=== PATIENT | male | born 1940 | race Two or more races ===

== ENCOUNTER 2017-02-20 19:07 | Emergency (ER) | payer SELFPAY ==
[~2017-02-20] VITALS: Ht 165.1 cm; Wt 69.9 kg
[2017-02-20] MEDS ORDERED: NKM (19:17)
[2017-02-20 19:26] VITALS: BP 129/67
--- NOTE | 2017-02-20 20:16 | Emergency Room Report ---
History of Present Illness General Chief Complaint: Skin Rash/Abscess Source: Patient Present Illness HPI The patient states that he was stung by a bee 2 days ago.He states that he did see a physician yesterday and was put on Keflex and an antiallergy medication. He states that he noted some swelling in his left hand. He states that the sting was in his left upper arm. He admits that he has not been elevating the arm. He denies fever or chills. He denies pain. He states actually the arm appears to be improving. He has no other complaints. Allergies: Coded Allergies: No Known Allergies (Unverified , 02/20/17) Patient History Past Medical History: none, see triage record Social History: Denies: alcohol use, drug use, smoking Reviewed Nursing Documentation: PMH: Agreed, PSxH: Agreed Nursing Documentation-PMH Past Medical History: No Stated History Review of Systems All Other Systems: negative except mentioned in HPI Physical Exam Vital Signs Date Time Temp Pulse Resp B/P Pulse Ox O2 Delivery O2 Flow Rate FiO2 02/20/17 19:14 97.9 75 13 149/72 99 Room Air Sp02 EP Interpretation: reviewed, normal General Appearance: no apparent distress, alert, GCS 15, non-toxic Head: normocephalic, atraumatic Eyes: bilateral eye PERRL, bilateral eye normal inspection ENT: hearing grossly normal, normal pharynx, no angioedema, normal voice Neck: full range of motion, supple/symm/no masses Respiratory: no respiratory distress, no retraction, no accessory muscle use, speaking full sentences Rectal: deferred Musculoskeletal: back normal, gait/station normal, normal range of motion, other - L. upper arm with clear erythema medially. Edema throughout to include R. hand. Neurologic: alert, oriented x3, responsive, motor strength/tone normal, sensory intact, speech normal Psychiatric: judgement/insight normal, memory normal, mood/affect normal, no suicidal/homicidal ideation Skin: warm/dry, well hydrated, other - See MSK exam Medical Decision Making Diagnostic Impression: Primary Impression: Bee sting reaction ER Course This patient presents after a bee sting to the left arm. He is already on Keflex and Claritin. He has some edema of his left hand and arm. This is consistent with a dependent edema that is likely secondary to the local reaction in the upper left arm from the bee sting. I have low suspicion for DVT. There is no evidence of cellulitis. This appears to be a local reaction related to the bee sting. I instructed the patient to elevate the arm as much as possible. I did not identify an emergency medical condition. Patient is given return precautions and followup instructions. Last Vital Signs Date Time Temp Pulse Resp B/P Pulse Ox O2 Delivery O2 Flow Rate FiO2 02/20/17 19:26 97.9 71 15 129/67 97 Room Air Disposition: HOME, SELF-CARE Condition: Stable YENNIFER SEE D.O. Feb 20, 2017 20:16
[2017-02-20] MEDS ORDERED: BENADRYL25 MG ORAL (20:17)
[2017-02-20 20:22] VITALS: BP 143/83
[2017-02-20 20:23] VITALS: BP 143/83
== END 2017-02-20 20:25 | disposition home or self-care (01) ==
LOC: EMR 19:55
DX: T63.441A Toxic effect of venom of bees, accidental (unintentional), initial encounter (principal); Y92.9 Unspecified place or not applicable
CPT/HCPCS: 99283